=== PATIENT | male | born 1965 | race Caucasian/White ===

== ENCOUNTER 2024-04-17 23:29 | Emergency (ER) | payer SELFPAY ==
[2024-04-18 00:02] VITALS: BMI 30.8
[2024-04-18] MEDS ORDERED: ONDANSETRON 4 MG/2 ML VIAL ONE (01:08)
[2024-04-18] MEDS ORDERED: MORPHINE SULFATE 2 MG/ML SYRINGE ONE (01:08)
[2024-04-18] MEDS: LACTATED RINGERS SOLUTION 1000 ML INFUS.BAG IV ONE (01:17)
[2024-04-18] MEDS: morphine CARPU-JECT 2 MG/1 ML DISP.SYRIN IVPUSH ONE (01:17)
[2024-04-18] MEDS: ONDANSETRON 4 MG/2 ML VIAL IVPUSH ONE (01:18)
[2024-04-18 01:26] LABS: BASO % 0.3 % (0-2.0); EOS % 1.3 % (0-4.5); HEMATOCRIT 43.3 % (35.4-49); LYMPH % 10.2 % (8-40); MCH 30.7 pg (25.7-33.7); MCHC 34.6 g/dl (32.0-35.9); MEAN CELL VOLUME 88.6 fl (80-96); MEAN PLT VOLUME 8.1 fl (7.5-11.1); MONO % 6.2 % (3.8-10.2); PLATELET COUNT 244 10^3/uL (134-434); RBC 4.89 M/mm3 (4.00-5.60); RDW 14.4 % (11.9-15.9); WHITE BLOOD COUNT 15.3 K/mm3 (4.0-10.0)
[2024-04-18 01:53] LABS: POTASSIUM 3.5 mmol/L (3.5-5.1)
[2024-04-18 01:56] LABS: ALBUMIN 3.5 g/dl (3.4-5.0); BLOOD UREA NITROGEN 14.5 mg/dL (7-18); CALCIUM 8.7 mg/dL (8.5-10.1); MAGNESIUM 2.1 mg/dL (1.8-2.4)
[2024-04-18 02:00] LABS: CREATININE 1.3 mg/dL (0.55-1.3); TOT PROT 6.8 g/dl (6.4-8.2)
[2024-04-18 03:01] LABS: INR 1.25 (0.83-1.09)
[2024-04-18 03:05] LABS: ACTIVATED PTT 29.6 SECONDS (25.2-36.5)
[2024-04-18 04:11] LABS: EPI CELLS 1 /uL (0-25.1); HYALINE CASTS 0 /uL (0-3.1); URINE APPEARANCE CLEAR; URINE BACTERIA 0 /uL (0-1359); URINE BILIRUBIN NEGATIVE (NEGATIVE); URINE COLOR YELLOW; URINE GLUCOSE (UA) NEGATIVE (NEGATIVE); URINE KETONE NEGATIVE (NEGATIVE); URINE LEUK ESTERASE NEGATIVE (NEGATIVE); URINE NITRITE NEGATIVE (NEGATIVE); URINE PROTEIN NEGATIVE (NEGATIVE); URINE RBC 61 /uL (0-23.9); URINE WBC 2 /uL (0-25.8)
[2024-04-18 06:15] VITALS: BP 141/83; PULSE 61; RESP 16; TEMP 98.2
[2024-04-18] MEDS ORDERED: KETOROLAC TROMETHAMINE 15 MG/ML VIAL ONE (09:26)
[2024-04-18] MEDS: KETOROLAC TROMETHAMINE 15 MG/ML VIAL IVPUSH ONE (09:29)
== END 2024-04-18 09:38 | disposition home or self-care (01) ==
LOC: JER 23:29
PROC: 3E0333Z Introduction of Anti-inflammatory into Peripheral Vein, Percutaneous Approach (ICD-10-PCS; principal; 2024-04-18)
PROC: 3E033NZ Introduction of Analgesics, Hypnotics, Sedatives into Peripheral Vein, Percutaneous Approach (ICD-10-PCS; 2024-04-18)
PROC: 3E033GC Introduction of Other Therapeutic Substance into Peripheral Vein, Percutaneous Approach (ICD-10-PCS; 2024-04-18)
DX: R10.32 Left lower quadrant pain (principal)
CPT/HCPCS: 36415; 74177-TC; 80053; 81003; 83605; 83690; 83735; 85025; 85610; 85730; 87086; 99285-25